=== PATIENT | male | born 1960 | race African-American/Black ===

== ENCOUNTER 2017-07-21 08:18 | Emergency (ER) | payer BC ==
[~2017-07-21] VITALS: Ht 182.9 cm; Wt 97.5 kg
[2017-07-21 08:23] VITALS: BP_SYST 125
--- NOTE | 2017-07-21 08:28 | NUR ---
Patient to ER bed 4 to gown for evaluation. Side rails up. Report given to Jenifer MARTINEZ.
--- NOTE | 2017-07-21 08:35 | NUR ---
patient came to ER for cc of right index finger pain after shaking his friend hands, stated painful even putting his hand in his pants pocket.no s/s of distress. vital sign stable.aferbile.
--- NOTE | 2017-07-21 08:59 | NUR ---
ER at bedside examining patient.
[2017-07-21 09:49] VITALS: BP_SYST 125
--- NOTE | 2017-07-21 09:49 | NUR ---
Patient given written and verbal discharge instructions and verbalizes understanding.ER MD discussed with patient the results and treatment provided.excuse to work form. Patient in stable condition. ID arm band removed. IV catheter removed intact and dressing applied, no active bleeding. Rx of motrin given. Patient educated on pain management and to follow up with PMD. Pain Scale 1. Opportunity for questions provided and answered.
== END 2017-07-21 09:49 | disposition home or self-care (01) ==
LOC: SED 08:18
DX: M79.641 Pain in right hand (principal)
CPT/HCPCS: 99284

== ENCOUNTER 2020-07-01 12:06 | Emergency (ER) | payer BC ==
[~2020-07-01] VITALS: Ht 182.9 cm; Wt 99.8 kg
[2020-07-01] MEDS ORDERED: LIDOCAINE 1% 10 MG/ML, 20 ML MDV INJ ONE (12:45)
[2020-07-01] MEDS ORDERED: DIPH-TET-PERTUS Vaccine 0.5 ML VIAL (ADACEL) I.M. ONE (12:45)
[2020-07-01 14:23] VITALS: BP_SYST 132
== END 2020-07-01 14:23 | disposition short-term general hospital (02) ==
LOC: SED 12:06
DX: S61.512A Laceration without foreign body of left wrist, initial encounter (principal)
CPT/HCPCS: 90715; 99285